=== PATIENT | female | born 1955 | race Caucasian/White ===

== ENCOUNTER 2019-01-11 09:01 | Day surgery (SDC) | payer BC ==
[~2019-01-11 09:01] MED LIST: Lactated Ringers 1,000 ML IV SCH; Lidocaine 1%/Sod Bicarbonate in NS 8.4% 1 ML Syringe IDERM PRN; Sodium Chloride 0.9% 10 ML Syringe FLUSH PRN
--- NOTE | 2019-01-11 09:33 | PCM.PREANE ---
Preanesthetic Assessment - Anesthesia/Transfusion/Family Hx Anesthesia History: Prior Anesthesia Without Reaction Family History of Anesthesia Reaction: No Transfusion History: No Prior Transfusion(s) Intubation History: Unknown - Review of Systems General: No Symptoms Pulmonary: No Symptoms Cardiovascular: No Symptoms Gastrointestinal: Abdominal Pain Neurological: No Symptoms - Physical Assessment NPO Status Date: 01/10/19 NPO Status Time: 00:00 Height: 1.65 m Weight: 61.235 kg Airway Class: Mallampati = 1 Dentition: Reports: Normal Dentition ROM/Head Extension: Full Lungs: Clear to Auscultation Cardiovascular: Regular Rate, Regular Rhythm, No Murmurs - Allergies Allergies/Adverse Reactions: Allergies Allergy/AdvReac Type Severity Reaction Status Date / Time atorvastatin Allergy Abdominal Verified 01/10/19 09:57 Pain Sulfa (Sulfonamide Allergy Itching Verified 01/10/19 09:57 Antibiotics) - Blood Blood Available: No Product(s) Available: None - Acknowledgements Anesthesia Type Planned: MAC Pt an Appropriate Candidate for the Planned Anesthesia: Yes Alternatives and Risks of Anesthesia Discussed w Pt/Guardian: Yes Pt/Guardian Understands and Agrees with Anesthesia Plan: Yes PreAnesthesia Questionnaire HEENT History: Reports: Otitis Media Other HEENT History: Fuch's corneal dystrophy, pharyngitis Cardiovascular History: Reports: None Respiratory History: Reports: None Gastrointestinal History: Reports: Colon Polyp Genitourinary History: Reports: None 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: Musculoskeletal History: Reports: Osteoporosis Other Musculoskeletal History: Heel pain, left humerus fracture Neurological History: Reports: None Psychiatric History: Reports: None Endocrine/Metabolic History: Reports: Osteoporosis Hematologic History: Reports: None Immunologic History: Reports: None Oncologic (Cancer) History: Reports: None Dermatologic History: Reports: Other (See Below) Other Dermatologic History: Tinea corposus, rash - Past Surgical History Head Surgeries/Procedures: Reports: None HEENT Surgical History: Reports: Myringotomy w Tube(s), Tonsillectomy Other HEENT Surgeries/Procedures: TMJ surgery, tympanoplasty Cardiovascular Surgical History: Reports: None Respiratory Surgical History: Reports: None GI Surgical History: Reports: Colonoscopy Female Surgical History: Reports: Hysterectomy, Other (See Below) Other Female Surgeries/Procedures: Left breast lumpectomy, rectocele repair Neurological Surgical History: Reports: None Other Musculoskeletal Surgeries/Procedures:: Right heel surgery Oncologic Surgical History: Reports: None Dermatological Surgical History: Reports: None - SUBSTANCE USE Smoking Status *Q: Never Smoker Recreational Drug Use History: No - HOME MEDS Home Medications: Home Meds Alendronate Sodium [Fosamax] 70 mg PO MO 01/10/19 [History] Ascorbate Calcium [Vitamin C] 500 mg PO DAILY 01/10/19 [History] Aspirin [Halfprin] 81 mg PO DAILY 01/10/19 [History] Calcium Phosphate Trib/Vit D3 [Calcium + Vitamin D3 Gummies] 1 tab PO DAILY [History] Fish Oil/DHA/EPA [Fish Oil 1,200 MG] 2,400 mg PO DAILY 01/10/19 [History] Mv-Min/Iron/Folic/Calcium/Vitk [Women's Multivitamin Tablet] 1 tab PO DAILY [History] Sodium Chloride [Lamar-128] 1 drop EYEBOTH BID 01/10/19 [History] - CURRENT (IN HOUSE) MEDS Current Meds: Current Medications Lactated Ringer's (Ringers, Lactated) 1,000 mls @ 125 mls/hr IV ASDIRECTED FIDEL Stop: 01/11/19 23:00 Lidocaine/Sodium Bicarbonate (Buffered Lidocaine 1% In Ns 8.4%) 0.25 ml IDERM ONETIME PRN PRN Reason: Prior to IV Start Stop: 01/11/19 18:00 Sodium Chloride (Saline Flush) 10 ml FLUSH ASDIRECTED PRN PRN Reason: Keep Vein Open Stop: 01/11/19 18:00
[2019-01-11] MEDS ORDERED: Propofol 200 MG/20 ML SDV ONE ×2 (09:35→09:45)
--- NOTE | 2019-01-11 10:04 | PCM.POSTAN ---
POST ANESTHESIA ASSESSMENT - MENTAL STATUS Mental Status: Alert - RESPIRATORY Respiratory Status: Respiratory Rate WNL, Airway Patent, O2 Saturation Stable - CARDIOVASCULAR CV Status: Pulse Rate WNL, Blood Pressure Stable - GASTROINTESTINAL GI Status: No Symptoms - POST OP HYDRATION Hydration Status: Adequate & Stable
--- NOTE | 2019-01-11 10:05 | PCM48HPAN ---
Post Anesthesia Note - EVALUATION WITHIN 48HRS OF ANESTHETIC Vital Signs in Normal Range: Yes Patient Participated in Evaluation: Yes Respiratory Function Stable: Yes Airway Patent: Yes Cardiovascular Function Stable: Yes Hydration Status Stable: Yes Pain Control Satisfactory: Yes Nausea and Vomiting Control Satisfactory: Yes Mental Status Recovered: Yes Resp Rate: 16
--- NOTE | 2019-01-11 16:24 | OR ---
DATE OF OPERATION: 01/11/2019 SURGEON: Walter Orozco MD PREOPERATIVE DIAGNOSIS: Colorectal cancer screening. POSTOPERATIVE DIAGNOSIS: Colorectal cancer screening. OPERATION PERFORMED: Screening colonoscopy. ANESTHESIA: MAC. FINDINGS: Normal colonoscopy. No polyps, no diverticulosis. She had an excellent bowel prep. PATHOLOGY: None. DISPOSITION: Stable at the end of the procedure. ESTIMATED BLOOD LOSS: None. INDICATION: Edgardo is a 63-year-old female who was referred for colorectal cancer screening. She has not had a colonoscopy for 10 years. She was offered a screening colonoscopy per the standard of care. She was fully informed of the major risks, benefits, and alternatives. The risks include, but are not limited to perforation of the colon, bleeding, the risk of anesthesia, the possibility of further surgery, and many others. She gave informed consent. DESCRIPTION OF PROCEDURE: Edgardo was brought to the gastro suite and placed in the left lateral decubitus position. She was given monitored anesthesia. A digital rectal exam was performed. This was unremarkable. I introduced the colonoscope with copious lubrication into the rectum. I advanced the scope with gentle forward pressure keeping the lumen in view at all times. I reached the cecum and documented the cecum photographically. I slowly investigated the mucosa of the colon from the cecum back to the anus in an exam lasting 11 minutes. A careful examination failed to demonstrate polyps. I had an excellent look due to her excellent bowel prep. At the end of the procedure, the scope was withdrawn. She had no complications and tolerated the procedure well. PLAN: She will need another colonoscopy in 10 years. MMODAL /[id number]
== END 2019-01-11 10:40 | disposition home or self-care (01) ==
LOC: JD.SDS 09:01
PROVIDERS: ATTEND Surgery
DX: Z12.11 Encounter for screening for malignant neoplasm of colon (principal); E78.00 Pure hypercholesterolemia, unspecified; M81.0 Age-related osteoporosis without current pathological fracture; Z88.2 Allergy status to sulfonamides; Z88.8 Allergy status to other drugs, medicaments and biological substances; Z86.010 Personal history of colon polyps; Z79.82 Long term (current) use of aspirin; Z79.899 Other long term (current) drug therapy
CPT/HCPCS: 45378; J2704; J7120; 00812

== ENCOUNTER 2021-01-20 17:27 | Emergency (ER) | payer BC, MEDICARE ==
--- NOTE | 2021-01-20 18:15 | EDM.PDOC ---
ED HPI GENERAL MEDICAL PROBLEM - General Chief Complaint: Eye Problems Stated Complaint: LT EYE COMPLAINT Time Seen by Provider: 01/20/21 18:01 Source of Information: Reports: Patient History Limitations: Reports: No Limitations - History of Present Illness INITIAL COMMENTS - FREE TEXT/NARRATIVE: 65-year-old female presents to the ED with left eye pain. She reports she was out cutting the hedges this afternoon and was accidentally poked in the left eye by a tree branch. This went up underneath her eyeglasses and knocked her eyeglasses off of her face. She states since that time the eye is continued to hurt and get worse over the last 2 hours. Injury occurred approximately 1530 hrs. today. Patient states her visual acuity is unchanged. She recognizes the eye is very sensitive to light and is shedding tears more frequently. Denies any other injury. She was concerned whether or not there was a piece of branch broken off in her eye. Onset: Today, Sudden Onset Date: 01/20/21 Duration: Hour(s):, Getting Worse Location: Reports: Face (Lt eye pain. ) Quality: Reports: Ache, Burning, Stabbing Severity: Moderate (8/10) Improves with: Reports: None Worsens with: Reports: Other ( exposure to bright light. ) Context: Reports: Trauma (poked by a tree branch Lt eye). Denies: Activity, Exercise, Lifting, Sick Contact Associated Symptoms: Reports: Loss of Appetite. 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: Other (see below) (None.) Left Eye Pain Score (Numeric/FACES): 6 - Related Data Allergies Allergy/AdvReac Type Severity Reaction Status Date / Time atorvastatin Allergy Severe Abdominal Verified 01/20/21 17:32 Pain Sulfa (Sulfonamide Allergy Severe Itching Verified 01/20/21 17:32 Antibiotics) Home Meds: Home Meds Alendronate Sodium [Fosamax] 70 mg PO MO 01/10/19 [History] Ascorbate Calcium [Vitamin C] 500 mg PO DAILY 01/10/19 [History] Aspirin [Halfprin] 81 mg PO DAILY 01/10/19 [History] Calcium Phosphate Trib/Vit D3 [Calcium + Vitamin D3 Gummies] 1 tab PO DAILY 01/10/19 [History] Fish Oil/DHA/EPA [Fish Oil 1,200 MG] 2,400 mg PO DAILY 01/10/19 [History] Mv-Min/Iron/Folic/Calcium/Vitk [Women's Multivitamin Tablet] 1 tab PO DAILY 01/10/19 [History] Sodium Chloride [Lamar-128] 1 drop EYEBOTH BID 01/10/19 [History] Past Medical History HEENT History: Reports: Otitis Media Other HEENT History: Fuch's corneal dystrophy, pharyngitis Cardiovascular History: Reports: None Respiratory History: Reports: None Gastrointestinal History: Reports: Colon Polyp Genitourinary History: Reports: None 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: Musculoskeletal History: Reports: Osteoporosis Other Musculoskeletal History: Heel pain, left humerus fracture Neurological History: Reports: None Psychiatric History: Reports: None Endocrine/Metabolic History: Reports: Osteoporosis Hematologic History: Reports: None Immunologic History: Reports: None Oncologic (Cancer) History: Reports: None Dermatologic History: Reports: Other (See Below) Other Dermatologic History: Tinea corposus, rash - Past Surgical History Head Surgeries/Procedures: Reports: None HEENT Surgical History: Reports: Myringotomy w Tube(s), Tonsillectomy Other HEENT Surgeries/Procedures: TMJ surgery, tympanoplasty Cardiovascular Surgical History: Reports: None Respiratory Surgical History: Reports: None GI Surgical History: Reports: Colonoscopy Female Surgical History: Reports: Hysterectomy, Other (See Below) Other Female Surgeries/Procedures: Left breast lumpectomy, rectocele repair Neurological Surgical History: Reports: None Other Musculoskeletal Surgeries/Procedures:: Right heel surgery Oncologic Surgical History: Reports: None Dermatological Surgical History: Reports: None Social & Family History - Tobacco Use Tobacco Use Status *Q: Never Tobacco User - Caffeine Use Caffeine Use: Reports: Tea - Recreational Drug Use Recreational Drug Use: No - Living Situation & Occupation Living situation: Reports: Occupation: Retired ED ROS GENERAL - Review of Systems Review Of Systems: See Below Constitutional: Reports: No Symptoms HEENT: Reports: Glasses, Other (Does use artificial tears 2 drops each eye twice daily.) Respiratory: Reports: No Symptoms Cardiovascular: Reports: No Symptoms Endocrine: Reports: No Symptoms GI/Abdominal: Reports: No Symptoms : Reports: No Symptoms Musculoskeletal: Reports: No Symptoms Skin: Reports: No Symptoms Neurological: Reports: No Symptoms Psychiatric: Reports: No Symptoms Hematologic/Lymphatic: Reports: No Symptoms Immunologic: Reports: No Symptoms ED EXAM GENERAL W FULL EYE - Physical Exam Exam: See Below Exam Limited By: No Limitations General Appearance: Alert, WD/WN Eye Exam: Left Eye: Corneal Abrasion (Linear corneal abrasion starting at the 3 o'clock position and traveling superiorly to the 1 o'clock approximately 2 mm lateral to the center of the cornea.), Bilateral Eye: Vision Changes Visual Acuity (R) 20/: 30 Visual Acuity (L) 20/: 30 With Correction: Yes Eyelids: Left: Lid Everted for Exam (No foreign bodies identified.), Bilateral: Normal Appearance Conjunctiva & Sclera: Bilateral: Normal Appearance Cornea Exam: Left: Corneal Abrasion (Patient has a linear corneal abrasion at the 3 o'clock position traveling superiorly to the 1 o'clock position approximately 2 mm from the center of the cornea.) Extraocular Movements: Bilateral: Intact Pupils: Normal Accommodation Pupillary Size: Bilateral: 6 mm Pupillary Reaction: Bilateral: Brisk Anterior Chamber: Bilateral: Normal Appearance Posterior Chamber: Bilateral: Normal Funduscopic (For endoscopy anterior and posterior chambers is normal.) Course - Vital Signs Last Recorded V/S: Last Vital Signs Temp 36.9 C 01/20/21 17:33 Pulse 71 01/20/21 17:33 Resp 16 01/20/21 17:33 BP 159/82 H 01/20/21 17:33 Pulse Ox 99 01/20/21 17:33 - Orders/Labs/Meds Meds: Medications Discontinued Medications Generic Name Dose Route Start Last Admin Trade Name Zane PRN Reason Stop Dose Admin Ciprofloxacin 2.5 ml 01/20/21 18:21 Ciprofloxacin 0.3% Ophth Soln 5 Ml Bottle EYELF 01/20/21 18:22 ONETIME ONE Ketorolac Tromethamine 3 ml 01/20/21 18:23 Ketorolac 0.5% Ophth Soln 5 Ml Bottle EYELF 01/20/21 18:24 ONETIME ONE - Radiology Interpretation Free Text/Narrative:: 65-year-old female presents to the ED with acute left eye pain after a tree branch struck her in the left eye at approximately 1530 hrs. today. She was out cutting the hedge in her yard today when a tree branch poked her inadvertently into the left eye. It went up underneath her eyeglasses and knocked him off her face. The eye has been excessively tearing since injury and very sensitive to light. She was concerned that there may be a piece of branch or foreign body in her eye to be causing her current pain. On examination she has no foreign bodies in her eye. On initial exam I thought there was a corneal abrasion at the 9 o'clock position and this was confirmed on slit-lamp examination. There is a linear scratch lateral cornea starting at the 9:00 positioning traveling upwards to the 1 o'clock position. It is approximately 2 mm lateral to the center of her cornea. It appears to be fairly superficial on slit-lamp exam. Triple be Toradol ophthalmic drops 2 drops to the left eye every 6 hours as needed for pain relief. She will be sent home with an eye patch so that she can taper her left eye closed overnight if it is excessively painful. Secondly she will be placed on antibiotic ciprofloxacin eyedrops. 2 drops to the left eye every 8 hours for the next 2 days to prevent secondary infection. 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 if not completely back to normal in 24 to 36 hours time Departure - Departure Time of Disposition: 18:24 Disposition: Home, Self-Care 01 Condition: Fair Clinical Impression: Corneal abrasion, left Qualifiers: Encounter type: initial encounter Qualified Code(s): S05.02XA - Injury of conjunctiva and corneal abrasion without foreign body, left eye, initial encounter Corneal abrasion Qualifiers: Encounter type: initial encounter Laterality: left Qualified Code(s): S05.02XA - Injury of conjunctiva and corneal abrasion without foreign body, left eye, initial encounter - Discharge Information *PRESCRIPTION DRUG MONITORING PROGRAM REVIEWED*: Not Applicable *COPY OF PRESCRIPTION DRUG MONITORING REPORT IN PATIENT ADITI: Not Applicable Instructions: Corneal Abrasion, [id number] Referrals: Jeni Chicas MD [Primary Care Provider] - Forms: ED Department Discharge Additional Instructions: Evaluation in the emergency room today in regards to blunt trauma to the left eye that occurred from injury by a tree branch while cutting the hedges. Examination reveals a scratch which we call a corneal abrasion on your left cornea. The cornea is extremely sensitive and causes sharp stabbing pain and very difficult to look at bright light. The abrasion is fairly superficial and will be healed usually within the next 24 hours. Pain went away completely after numbed up with topical anesthetic in the ED called proparacaine. You will need to use anti-inflammatory medication Toradol 2 drops to the left eye every 6 hours as needed to relieve pain and inflammation. Antibiotic is to be ciprofloxacin eyedrops-2 drops to the left eye 3 times daily for the next 2 days to prevent secondary eye infection. May use a pad to tape the eye closed if very sensitive to light this evening. If it is causing significant discomfort suggest Benadryl 50 mg at bedtime to help sleep. Return to medical or gravel roofer care if not completely back to normal in 24 hours time.Do not use your artificial tear drops in the Lt eye until finished with the antibiotic eye drops. Sepsis Event Note (ED) - Evaluation Sepsis Screening Result: No Definite Risk - Focused Exam Vital Signs: Vital Signs Temp Pulse Resp BP Pulse Ox 01/20/21 17:33 36.9 C 71 16 159/82 H 99
[2021-01-20] MEDS ORDERED: Ciprofloxacin 0.3% Ophth Soln 5 ML Bottle EYELF ONE (18:21)
[2021-01-20] MEDS ORDERED: Ketorolac 0.5% Ophth Soln 5 ML Bottle EYELF ONE (18:23)
== END 2021-01-20 18:51 | disposition home or self-care (01) ==
LOC: JD.ED 17:27
DX: S05.02XA Injury of conjunctiva and corneal abrasion without foreign body, left eye, initial encounter (principal); Z88.2 Allergy status to sulfonamides; Z88.8 Allergy status to other drugs, medicaments and biological substances; Z79.82 Long term (current) use of aspirin; W22.8XXA Striking against or struck by other objects, initial encounter
CPT/HCPCS: 99283; A9270